=== PATIENT | male | born 1950 | race Caucasian/White ===

== ENCOUNTER → 2020-03-10 12:51 | Outpatient (BNVA) | payer MEDICARE, MEDICAID, SELFPAY | PROVIDERS: Family Provider Family Medicine; PCP Family Medicine; Referring Provider Family Medicine; Visit Provider Anesthesiology Pain Medicine | DX: M47.816 Spondylosis without myelopathy or radiculopathy, lumbar region (principal); M54.16 Radiculopathy, lumbar region; M54.9 Dorsalgia, unspecified; F17.210 Nicotine dependence, cigarettes, uncomplicated; Z79.891 Long term (current) use of opiate analgesic | CPT/HCPCS: 99203; 99204 ==

== ENCOUNTER 2021-06-27 15:25 | Outpatient (CLI) | payer MEDICARE, MEDICAID, SELFPAY ==
--- NOTE | 2021-06-27 15:45 | USCV_ITS ---
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 Limited images during SAVAGE on the left side of 0.94 TBI also no point 4 4 on the right and 0.6 on the left CONCLUSIONS Normal resting SAVAGE with abnormal resting TBI on the right side, suggestive of mild to moderate peripheral artery disease involving the distal vessel. Diminished resting SAVAGE and TBI on the left side suggesting mild peripheral artery disease . No similar previous studies are available for comparison. Dr Merle Kaur MD [facility] (Electronically Signed) Final Date: 28 June 2021 08:00 S
== END 2021-06-27 15:26 | disposition home or self-care (01) ==
LOC: RAD 15:27
PROVIDERS: Family Provider Family Medicine; PCP Family Medicine; Visit Provider Family Medicine
DX: M79.604 Pain in right leg (principal); E11.9 Type 2 diabetes mellitus without complications
CPT/HCPCS: 93922

== ENCOUNTER → 2021-09-12 13:03 | Outpatient (BNVA) | payer MEDICARE, MEDICAID, SELFPAY | PROVIDERS: Family Provider Family Medicine; PCP Family Medicine; Referring Provider Family Medicine; Visit Provider Specialist | DX: G20 Parkinson's disease (principal); F02.80 Dementia in other diseases classified elsewhere, unspecified severity, without behavioral disturbance, psychotic disturbance, mood disturbance, and anxiety; R44.1 Visual hallucinations | CPT/HCPCS: 99204; 99205 ==

== ENCOUNTER 2021-09-13 12:34 | Outpatient (CLI) | payer MEDICARE, MEDICAID, SELFPAY ==
--- NOTE | 2021-09-13 | CT_ITS ---
WS: [id number] CT ANGIOGRAPHY OF THE ABDOMINAL AORTA WITH RUNOFF TO THE ANKLES HISTORY: PAD on ultrasound. TECHNIQUE: Arterial injection is performed during imaging to evaluate the aorta and runoff vessels to the ankles. MIP and volume rendering imaging has also been performed. All images are reviewed. All C T scans at [facility] use at least one of these dose optimization techniques: automated exposu re control; mA and/or kV adjustment per patient size (includes targeted exams where dose is matched t o clinical indication); or iterative reconstruction. Contrast: Omnipaque 350; 95 mL IV. DLP: 709.52 mGy.cm COMPARISON: No similar studies. Abdominal aorta: Extensive atherosclerotic plaque within the aorta. There are multiple calcifications and mural nodules and mural thickening within the aorta. Just below the level of the renal arteries is a lucency through the lumen of the aorta which could be a short dissection or ulcerated plaque ext ending into the RIGHT lateral aorta. There is in the additional similar area of linear contrast enhan cement on the LEFT more inferiorly. Additional focal outpouching with contrast along the posterior la teral RIGHT distal aorta. There is extensive calcification and intimal thickening. Moderate stenosis distal aorta with a maximum diameter of 8 mm. Atherosclerotic plaque in the SMA and the celiac axis. Renal arteries are patent. RIGHT lower extremity arterial system: Proximal RIGHT common iliac artery stenosis 50%. Calcified zoila que and intimal thickening mild dilatation of the common iliac artery to 1.7 cm. Internal and externa l iliac arteries are small caliber and heavily diseased. Distal RIGHT internal iliac is probably occl uded. There is a severe, high-grade stenosis involving the distal external iliac artery at the common femoral artery. There is extensive multifocal areas of plaque and stenosis throughout the SFA. Popli teal artery is patent. Small vessel runoff to the ankle. The anterior tibial artery may be intermitte ntly occluded. LEFT lower extremity arterial system: Ulcerated plaque versus a short dissection involving the proxim al LEFT common iliac artery. 70% stenosis involving the mid to distal common iliac artery. There is a neurysmal dilatation to 1.5 cm. Distal LEFT internal iliac artery is probably occluded. Calcified zoila que and intimal thickening continues into the distal external iliac artery. There is a high-grade george nosis distally near the origin of the femoral artery. SFA and profunda are intact although small honey blanca and heavily disease. Multifocal areas of stenosis greater than 50% in the SFA. 50% stenosis in Hu nter's canal. Popliteal arteries patent. Small caliber three-vessel runoff to the ankle. Cholelithiasis without acute cholecystitis. No ascites or adenopathy. Urinary bladder is not distende d. [place] [id number] IMPRESSION: 1. There is extensive calcified plaque throughout the abdominal aorta with no aneurysm. High-grade stenosis distal abdominal aorta at the bifurcation. 2. Multifocal areas of ulcerated plaque versus short dissections within the ao rta. 3. Additional ulcerated plaque versus short dissection within the proximal LEF T common iliac artery. 4. Mild aneurysmal dilatation of the common iliac arteries, most significant o n the RIGHT at 1.7 cm. 5. Multilevel areas of moderate to high-grade stenosis superficial femoral art eries. 6. Proximal RIGHT common iliac artery stenosis 50%. 7. High-grade stenosis distal RIGHT external iliac artery. 8. 70% stenosis distal LEFT common iliac artery. 9. High-grade stenosis distal LEFT femoral artery. 10. Three-vessel runoff to the ankle is limited. Small caliber vessels.
[2021-09-13 14:20] LABS: Blood Urea Nitrogen 14 mg/dL (8-23)
[2021-09-13] MEDS: iohexol 350 mg/mL 100 mL Btl IV (14:38)
== END 2021-09-13 12:35 | disposition home or self-care (01) ==
LOC: RAD 12:37
PROVIDERS: PCP Family Medicine; Visit Provider Internal Medicine
DX: I73.9 Peripheral vascular disease, unspecified (principal); I70.0 Atherosclerosis of aorta; I35.0 Nonrheumatic aortic (valve) stenosis; I70.8 Atherosclerosis of other arteries
CPT/HCPCS: 73706; 82565; 84520

== ENCOUNTER → 2022-01-10 12:51 | Outpatient (BNVA) | payer MEDICARE, MEDICAID, SELFPAY | PROVIDERS: PCP Family Medicine; Visit Provider Specialist | DX: G20 Parkinson's disease (principal) | CPT/HCPCS: 99214 ==

== ENCOUNTER → 2022-05-03 14:57 | Outpatient (BNVA) | payer MEDICARE, MEDICAID, SELFPAY | PROVIDERS: PCP Family Medicine; Visit Provider Specialist | DX: G20 Parkinson's disease (principal); E11.40 Type 2 diabetes mellitus with diabetic neuropathy, unspecified; Z79.4 Long term (current) use of insulin | CPT/HCPCS: 96116; 99214 ==

== ENCOUNTER 2022-05-04 08:00 | Outpatient (CLI) | payer MEDICARE, MEDICAID, SELFPAY ==
--- NOTE | 2022-05-04 08:12 | CT_ITS ---
WS: [id number] CT ABDOMEN CONTRAST TECHNIQUE: Contrast enhanced CT of the abdomen with coronal and sagittal reformatted images. CLINICAL INFORMATION: OTHER CHOLEITHIASIS W/O OBSTRUCTION COMPARISON: None. DLP: 683.[address] scans at [facility] use at least one of these dose optimization techniques: automated e xposure control; mA and/or kV adjustment per patient size (includes targeted exams where dose is matc hed to clinical indication); or iterative reconstruction. FINDINGS: Hepatomegaly with diffuse fatty infiltration liver. Normal portal vein and splenic vein. Cholelithias is. Lobulated gallbladder fundus likely phrygian cap. Normal spleen. Normal GE junction. Normal GE junction. Stomach and duodenum are normal. Lung bases are well aerated. Fatty atrophy of th e pancreas. Normal pancreatic parenchymal enhancement. Adrenal glands are normal. Normal renal parenc hymal enhancement. No hydronephrosis. Prominent RIGHT extra renal pelvis. Bilateral renal cysts. Norm al caliber abdominal aorta. Moderate aortic calcification. Celiac and SMA are patent with mild calcif ication at the origins worse at the SMA. Small amount of peripheral mural thrombus in the mid and dis lexi abdominal aorta with irregular ulceration. No significant aneurysm. CT/CT abdomen w con* [id number] IMPRESSION: 1. Diffuse fatty infiltration of the liver. 2. Cholelithiasis. No significant gallbladder wall thickening or pericholecyst ic fluid. Lobulated gallbladder fundus likely due to phrygian cap. Gallbladder can be further evaluated with ultrasound. 3. Moderate calcified atheromatous disease abdominal aorta with peripheral mur al thrombus. Irregular atheromatous disease in the mid and distal abdominal aor ta. No aneurysm. 4. Bilateral renal cysts. No hydronephrosis. 5. No other remarkable findings.
[2022-05-04] MEDS: iohexol 350 mg/mL 100 mL Btl IV (09:12)
[2022-05-04 09:19] LABS: Blood Urea Nitrogen 14 mg/dL (8-23)
== END 2022-05-04 08:01 | disposition home or self-care (01) ==
LOC: RAD 08:01
PROVIDERS: Radiology Neuroradiology; PCP Family Medicine; Visit Provider Family Medicine
DX: K80.20 Calculus of gallbladder without cholecystitis without obstruction (principal); K76.0 Fatty (change of) liver, not elsewhere classified; I70.0 Atherosclerosis of aorta; Q61.02 Congenital multiple renal cysts
CPT/HCPCS: 74160; 82565; 84520

== ENCOUNTER 2022-05-15 06:00 | Outpatient (RCR) | payer MEDICARE, MEDICAID, SELFPAY | END 2022-06-12 23:59 | disposition home or self-care (01) | LOC: MPT 06:00 | PROVIDERS: PCP Family Medicine; Visit Provider Specialist | DX: G20 Parkinson's disease (principal) | CPT/HCPCS: 97110; 97161 ==

== ENCOUNTER → 2022-05-23 09:15 | Outpatient (BNVA) | payer MEDICARE, MEDICAID, SELFPAY | PROVIDERS: PCP Family Medicine; Visit Provider Surgery | DX: K80.20 Calculus of gallbladder without cholecystitis without obstruction (principal); K59.00 Constipation, unspecified | CPT/HCPCS: 99203 ==

== ENCOUNTER → 2024-01-02 13:18 | Outpatient (BNVA) | payer MEDICARE, MEDICAID, SELFPAY | PROVIDERS: PCP Family Medicine; Visit Provider Thoracic Surgery (Cardiothoracic Vascular Surgery) | DX: L89.311 Pressure ulcer of right buttock, stage 1 (principal); L89.321 Pressure ulcer of left buttock, stage 1 | CPT/HCPCS: 99213 ==

== ENCOUNTER 2024-01-11 18:54 | Emergency (ER) | payer MEDICARE, MEDICAID, SELFPAY ==
[2024-01-11 18:57] VITALS: BP 149/90; PULSE 79; RESP 18; TEMP 36.9; O2SAT 95; BMI 34.2
--- NOTE | 2024-01-11 19:05 | W.ED.GENADLT ---
HPI - General Adult General: Chief complaint: Altered Mental Status Stated complaint: AMS Time Seen by Provider: 01/11/24 18:58 History of Present Illness: 73-year-old male brought in via EMS. Patient brought in per them because he is been declining mentally last 2 days. Patient has had some urinary symptoms for 4 days. Saw his primary care provider earlier today and was diagnosed with a UTI and prescribed Macrobid. He has not started the Macrobid yet. He is not have any complaints. 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 Diabetes Hx of heart disorder Dementia Pain management contract signed Surgical History History of colonoscopy History of prostate surgery History of coronary artery stent placement History of back surgery Social History Smoking and tobacco/nicotine status: current every day tobacco/nicotine user cigarettes Physical Exam Const: GENERAL APPEARANCE: cooperative; not in distress Resp: COMMON NORMALS: normal respiratory effort and No use of accessory muscles Cardio: COMMON NORMALS: regular rate and regular rhythm RATE: regular rate RHYTHM: regular rhythm GI: COMMON NORMALS: Soft to palpation and non-tender PALPATION: Yes Soft to palpation Psych: COMMON NORMALS: mental status grossly normal and cooperative APPEARANCE: Yes grossly normal Course Vital Signs: Vital signs: Vital Signs Temperature 98.5 F 01/11/24 18:57 Pulse Rate 67 01/11/24 20:08 Respiratory Rate 16 01/11/24 20:08 Blood Pressure 146/79 01/11/24 20:08 Pulse Oximetry 95 01/11/24 20:08 Oxygen Delivery Me thod Room Air 01/11/24 20:08 MDM - General Adult Medical Decision Making Patient diagnostic studies ordered reviewed and interpreted by me. Patient urine is consistent with a UTI however this was similar to what it was reported. Patient otherwise has no acute concerning findings. Patient was able to ambulate without difficulty with us while in the ER. I did provide him with a gram of Rocephin. Recommended to family that they start antibiotics that he has prescribed first thing in the morning. Patient was stable and discharged home. He should follow-up with a primary care provider in a few days. He is at increased risk for morbidity or mortality based on the social determinants of health. Lab Data 01/11/24 19:19 01/11/24 19:19 Laboratory Results WBC 10.70 10^3/uL (3.29-11.43) 01/11/24 19:19 RBC 3.96 10^6/uL (3.85-5.65) 01/11/24 19:19 Hgb 11.30 g/dL (11.27-16.99) 01/11/24 19:19 Hct 35.3 % (37-53) L 01/11/24 19:19 MCV 89.1 fl (82-101) 01/11/24 19:19 MCH 28.5 pg (27-33) 01/11/24 19:19 MCHC 32.0 g/dL (30-55) 01/11/24 19:19 RDW 12.5 % (12.1-15.1) 01/11/24 19:19 Plt Count 243 10^3/cmm (157-399) 01/11/24 19:19 MPV 9.3 fL (7.4-10.4) 01/11/24 19:19 Neut % (Auto) 77.4 % 01/11/24 19:19 Lymph % (Auto) 8.9 % 01/11/24 19:19 Emmet % (Auto) 12.3 % 01/11/24 19:19 Eos % (Auto) 0.5 % 01/11/24 19:19 Baso % (Auto) 0.3 % 01/11/24 19:19 Neut # (Auto) 8.29 10^3/uL (1.8-7.7) H 01/11/24 19:19 Lymph # (Auto) 1.0 10^3/uL (0.8-4.8) 01/11/24 19:19 Emmet # (Auto) 1.3 10^3/uL (0.2-0.9) H 01/11/24 19:19 Eos # (Auto) 0.1 10^3/uL (0.0-0.8) 01/11/24 19:19 Baso # (Auto) 0.0 10^3/uL (0.0-0.1) 01/11/24 19:19 Nucleated RBC % (auto) 0 % 01/11/24 19:19 Nucleated RBCs # 0.0 /100WBC 01/11/24 19:19 Sodium 133 mmol/L (136-145) L 01/11/24 19:19 Potassium 3.5 mmol/L (3.5-5.1) 01/11/24 19:19 Chloride 101 mmol/L (98-107) 01/11/24 19:19 Carbon Dioxide 22 mmol/L (22-29) 01/11/24 19:19 Anion Gap 13.5 (5-19) 01/11/24 19:19 BUN 17 mg/dL (8-23) 01/11/24 19:19 Creatinine 0.6 mg/dL (0.7-1.2) L 01/11/24 19:19 GFR Calculation Not Reportable 01/11/24 19:19 Glucose 174 mg/dL (65-115) H 01/11/24 19:19 Calculated Osmolality 282 mOsm/kg (285-295) L 01/11/24 19:19 Lactic Acid 1.2 mmol/L (0.5-2.2) 01/11/24 19:19 Calcium 8.0 mg/dL (8.5-10.5) L 01/11/24 19:19 Urine Color Yellow (Yellow) 01/11/24 19:02 Urine Appearance Slightly cloudy (CLEAR) 01/11/24 19:02 Urine pH 7 (5-7) 01/11/24 19:02 Ur Specific [place] 1.015 (1.005-1.030) 01/11/24 19:02 Urine Protein Neg (Negative) 01/11/24 19:02 Urine Glucose (UA) 1+ (Normal) H 01/11/24 19:02 Urine Ketones Negative (Negative) 01/11/24 19:02 Urine Blood Neg (Negative) 01/11/24 19:02 Urine Nitrate Negative (Negative) 01/11/24 19:02 Urine Bilirubin Neg (Negative) 01/11/24 19:02 Urine Urobilinogen Neg mg/dL (Negative) 01/11/24 19:02 Ur Leukocyte Esterase Negative (Negative) 01/11/24 19:02 Urine RBC 5-10 /hpf (0-2) H 01/11/24 19:02 Urine WBC 25-40 /hpf (0-5) H 01/11/24 19:02 Ur Squamous Epith Cells 0-4 /hpf (0-5) H 01/11/24 19:02 Amorphous Sediment Not Reportable 01/11/24 19:02 Urine Bacteria 1+ /hpf (NONE) H 01/11/24 19:02 Urine Mucus 2+ /hpf 01/11/24 19:02 All radiology interpretation(s) finalized by discharge Discharge Plan Discharge Patient Disposition: Home Clinical Impression: Acute cystitis with hematuria Condition: Stable Prescriptions: No Action insulin glargine 100 unit/mL (3 mL) insulin pen 10 unit SUBCUT DAILY atorvastatin 40 mg tablet 40 mg PO DAILY acetaminophen [Tylenol Extra Strength] 500 mg tablet 500 mg PO Q6H PRN metoprolol tartrate 25 mg tablet 12.5 mg PO BID aspirin [Adult Low Dose Aspirin] 81 mg tablet,delayed release (DR/EC) 81 mg PO DAILY tramadol 50 mg tablet 50 mg PO BID PRN (Reason: pain) Qty: 45 0RF magnesium hydroxide [Milk of Magnesia] 400 mg/5 mL suspension 5 ml PO DAILY PRN isosorbide mononitrate 30 mg tablet extended release 24 hr 30 mg PO DAILY potassium chloride [Klor-Con 10] 10 mEq tablet extended release 10 meq PO DAILY Basaglar KwikPen U-100 Insulin 100 unit/mL (3 mL) insulin pen 5 unit SUBCUT DAILY gabapentin 300 mg capsule 300 mg PO TID 90 Days Qty: 270 3RF carbidopa-levodopa 25-100 mg tablet See Rx Instructions .ROUTE .COMPLEX Qty: 180 5RF Rx Instructions: Take 2 in the morning, 2 at noon, and 1 in the afternoon. Discharge Orders: Discharge ED (Routine); Ordered 01/11/24 Ordered By: Alfredo Lion Referrals: Ruben Hudson, [Referring] - Discharge Diet: Usual diet Discharge Activity: Resume usual activity Patient Instructions: Urinary Tract Infection in Men (ED), Altered Mental Status (ED), Opioid Safety, Pain Management Activity Restrictions/Additional Instructions: Please be sure you start your already prescribed medications in the morning. Follow with your primary care provider in a couple days for recheck of your symptoms. Be sure you are drinking plenty of fluids. Coding Level of Care Code ED Concrete Products Machine Operator for Ulises Greene
[2024-01-11 19:37] LABS: Basophils % 0.3 %; Eosinophils # 0.1 10^3/uL (0.0-0.8); Eosinophils % 0.5 %; Hematocrit 35.3 % (37-53); Lymphocytes % 8.9 %; Mean Corpuscular Hemoglobin 28.5 pg (27-33); Mean Corpuscular Volume 89.1 fl (82-101); Mean Platelet Volume 9.3 fL (7.4-10.4); Monocytes # 1.3 10^3/uL (0.2-0.9); Monocytes % 12.3 %; Neutrophils # 8.29 10^3/uL (1.8-7.7); Neutrophils % 77.4 %; Nucleated Red Blood Cells % 0 %; Platelet Count 243 10^3/cmm (157-399); Red Blood Count 3.96 10^6/uL (3.85-5.65); Red Cell Distribution Width 12.5 % (12.1-15.1)
[2024-01-11 19:46] LABS: Add Urine Microscopic? YES; Bilirubin Urine Neg (Negative); Blood Urine Neg (Negative); Glucose Urine UA 1+ (Normal); Ketones Urine Negative (Negative); Leukocyte Esterase Urine Negative (Negative); Nitrate Urine Negative (Negative); Protein Urine Neg (Negative); Specific Gravity, Urine 1.015 (1.005-1.030); Urine Appearance Slightly Cloudy (CLEAR); Urine Color Yellow (Yellow); Urobilinogen Urine Neg (Negative); pH Urine 7 (5-7)
[2024-01-11 19:47] LABS: Add Urine Culture? Yes; Bacteria Urine 1+ /hpf; Mucus Urine 2+ /hpf; Squamous Epithelial Cell Urine 0-4 /hpf (0-5); WBC Urine 25-40 /hpf (0-5)
[2024-01-11 19:49] LABS: Anion Gap 13.5 (5-19); Blood Urea Nitrogen 17 mg/dL (8-23); Carbon Dioxide 22 mmol/L (22-29); Chloride 101 mmol/L (98-107); Creatinine Clr Calc Pharmacy 93.8016; Glucose 174 mg/dL (65-115); Lactic Sepsis W/Reflex 1.2 mmol/L (0.5-2.2); Osmolality Calculated 282 mOsm/kg (285-295); Potassium 3.5 mmol/L (3.5-5.1); Sodium 133 mmol/L (136-145)
[2024-01-11] MEDS: cefTRIAXone 1,000 MG in sodium chloride 0.9% (plus) 50 ML 100 MG IV (20:06)
[2024-01-11 20:08] VITALS: BP 146/79; PULSE 67; RESP 16; O2SAT 95
--- NOTE | 2024-01-11 20:39 | PC.NURSE ---
pt able to ambulate with walker as he does at home.
[2024-01-11 21:19] VITALS: BP 146/79; PULSE 67; RESP 16; TEMP 36.9; O2SAT 95
== END 2024-01-11 21:22 | disposition home or self-care (01) ==
PROVIDERS: Emergency Provider Student in an Organized Health Care Education/Training Program
DX: N30.01 Acute cystitis with hematuria (principal); Z79.82 Long term (current) use of aspirin; Z79.4 Long term (current) use of insulin; E11.9 Type 2 diabetes mellitus without complications; F03.90 Unspecified dementia, unspecified severity, without behavioral disturbance, psychotic disturbance, mood disturbance, and anxiety; F17.210 Nicotine dependence, cigarettes, uncomplicated
CPT/HCPCS: 36415; 80048; 81001; 83605; 85025; 87086; 96365; 99284; J0696

== ENCOUNTER 2024-11-06 13:42 | Outpatient (CLI) | payer MEDICARE, MEDICAID, SELFPAY ==
[2024-11-06 14:17] LABS: Bacteria Urine Trace /hpf; Hyaline Casts Urine 11.16 /lpf
[2024-11-06 14:34] LABS: Add Urine Microscopic? YES; Bilirubin Urine Negative (Negative); Blood Urine 2+ (Negative); Glucose Urine UA Negative (Normal); Ketones Urine Trace (Negative); Leukocyte Esterase Urine 1+ (Negative); Nitrate Urine Negative (Negative); Protein Urine 2+ (Negative); Specific Gravity, Urine 1.022 (1.005-1.030); Urine Appearance Clear (CLEAR); Urine Color Dark Yellow (Yellow)
[2024-11-06 14:50] LABS: RBC Urine 50-80 /hpf (0-2); UA Slide Review UA Slide Review Perf
[2024-11-06 14:51] LABS: Add Urine Culture? Yes
== END 2024-11-06 13:43 | disposition home or self-care (01) ==
DX: E11.649 Type 2 diabetes mellitus with hypoglycemia without coma (principal)
CPT/HCPCS: 81001; 87086

== ENCOUNTER 2025-07-22 15:46 | Emergency (ER) | payer MEDICARE, MEDICAID, SELFPAY ==
--- NOTE | 2025-07-22 15:49 | ECG_ITS ---
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 Measurements Intervals [place] Rate: 64 P: 86 CA: 193 QRS: -20 QRSD: 82 T: 55 QT: 411 QTc: 425 Interpretive Statements SINUS RHYTHM No previous ECG available for comparison Electronically Signed On 07-23-2025 17:27:43 PUBLIC RELATIONS SENIOR ASSOCIATE by Merle Kaur M.D. [id number]
--- NOTE | 2025-07-22 15:49 | XR_ITS ---
WS: [id number] XR chest 1V portable [id number] REASON FOR EXAM: ams FINDINGS: No previous examination for comparison. Patient is severely rotated to the right. Mild tortuosity and ectasia of the thoracic aorta. Cardiomegaly. Hyperexpansion of the left lung with herniation of the left lung across the midline. Decreased volume of the right hemithorax/right lung with coarse interstitial reticular lung opacities along the periphery of the right upper lung field. Presumed chronic. No definite acute pulmonary parenchymal or pleural findings. Moderate thoracic levoscoliosis and degenerative spondylosis. XR/XR chest 1V portable [id number] IMPRESSION: Presumed chronically abnormal chest as above. No acute findings are identified.
--- NOTE | 2025-07-22 15:49 | CTR_ITS ---
PROCEDURE INFORMATION: Exam: CT Head Without Contrast Exam date and time: 07/22/2025 4:10 PM Age: 74 years old Clinical indication: Altered mental status/memory loss; Additional info: AMS TECHNIQUE: Imaging protocol: Computed tomography of the head without contrast. Radiation optimization: All CT scans at this facility use at least one of these dose optimization techniques: automated exposure control; mA and/or kV adjustment per patient size (includes targeted exams where dose is matched to clinical indication); or iterative reconstruction. COMPARISON: No relevant prior studies available. RADIATION DOSE METRICS: Total DLP (mGy-cm): 1115.59 FINDINGS: Brain: The patient is asymmetrically positioned within the gantry challenging resolution. Moderate patchy periventricular and deep white matter decreased density noted in both cerebral hemispheres but appears to be greater on the left than the right.. The midline is intact. Two subcentimeter areas of extra-axial calcific like density is seen along the inner table image 33 of series 7. Beam hardening artifact obscures resolution through the posterior fossa structures.. No hemorrhage. Trace atherosclerotic calcification is seen in the left supraclinoid ICA. No mass effect. Cerebral ventricles: Ventricles demonstrate normal size shape and configuration and are felt to be in proportion to the degree of widening of the sulci, sylvian fissures and basilar cisterns. Paranasal sinuses: Visualized sinuses are unremarkable. No fluid levels. Mastoid air cells: Visualized mastoid air cells are well aerated. Bones: Calvarial vault appears to be intact.. No acute fracture. Soft tissues: Left temporal dystrophic scalp calcifications are noted to be present. These are best seen on image [address]/CT head wo con* [id number] IMPRESSION: 1. No acute intracranial head CT findings identified. 2. Atrophy/involutional changes of aging with components of [id number]-right chronic small-vessel disease. 3. Question history of remote trauma as evidenced by left frontotemporal scalp fibrotic changes and dystrophic left temporal scalp calcifications in addition to extra-axial calcifications seen along the left frontal region of the inner table warranting further clinical correlation.
--- NOTE | 2025-07-22 15:55 | W.ED.GENADLT ---
HPI - General Adult General: Chief complaint: Altered Mental Status Stated complaint: AMS Time Seen by Provider: 07/22/25 15:47 Source: EMS Mode of arrival: EMS Limitations: altered mental status History of Present Illness: 74-year-old male has a history of Parkinson's also history of dementia here with EMS for increased confusion at home. Primus patient's family states that he has just been more confused and normal here he is able to tell me his name he does follow commands is disoriented to time and place. He denies any pain anywhere denies any known recent illness he has been afebrile Related Data Home Medications ?Medication ?Instructions ?Recorded ?Confirmed acetaminophen 500 mg tablet 500 mg PO Q6H PRN 03/10/20 05/23/22 (Tylenol Extra Strength) aspirin 81 mg tablet,delayed 81 mg PO DAILY 03/10/20 05/23/22 release (Adult Low Dose Aspirin) atorvastatin 40 mg tablet 40 mg PO DAILY 03/10/20 05/23/22 insulin glargine 100 unit/mL (3 10 unit SUBCUT DAILY 03/10/20 05/23/22 mL) subcutaneous pen metoprolol tartrate 25 mg tablet 12.5 mg PO BID 03/10/20 05/23/22 insulin glargine 100 unit/mL (3 5 unit SUBCUT DAILY 07/19/21 05/23/22 mL) subcutaneous pen (Basaglar KwikPen U-100 Insulin) isosorbide mononitrate 30 mg 30 mg PO DAILY 07/19/21 05/23/22 tablet,extended release 24 hr magnesium hydroxide 400 mg/5 mL 5 ml PO DAILY PRN 07/19/21 05/23/22 oral suspension (Milk of Magnesia) potassium chloride 10 mEq 10 meq PO DAILY 07/19/21 05/23/22 tablet,extended release (Klor-Con) Previous Rx's ?Medication ?Instructions ?Recorded tramadol 50 mg tablet 50 mg PO BID PRN pain #45 tabs 03/10/20 gabapentin 300 mg capsule 300 mg PO TID 90 days #270 caps 08/08/22 carbidopa 25 mg-levodopa 100 mg See Rx Instructions .Route 12/22/22 tablet .COMPLEX #180 tabs cephalexin 500 mg capsule 500 mg PO TID 7 days #21 caps 07/22/25 Allergies Allergy/AdvReac Type Severity Reaction Status Date / Time No Known Allergies Allergy Verified 05/23/22 09:20 Review of Systems General: Reports: ROS unobtainable due to mental status PFSH ED PFSH: Medical History (Updated 07/22/25 @ 17:59 by Tito Singh MD) Asymptomatic cholelithiasis meterman (current) use of opiate analgesic Diabetes Hx of heart disorder Dementia Pain management contract signed Surgical History History of colonoscopy History of prostate surgery History of coronary artery stent placement History of back surgery Social History Smoking and tobacco/nicotine status: current every day tobacco/nicotine user cigarettes Physical Exam Const: COMMON NORMALS: negative for patient oriented x3 HENMT: COMMON NORMALS: normocephalic and atraumatic HEAD & SCALP: normocephalic and atraumatic Eye: COMMON NORMALS: Equal, round and reactive pupils present PUPIL: Yes Equal, round and reactive pupils present Neck/C-Spine: COMMON NORMALS: full ROM and supple Chest: COMMONS NORMALS: normal inspection of the chest and normal palpation of entire chest wall Resp: COMMON NORMALS: normal respiratory effort, No retractions, No use of accessory muscles and clear to auscultation bilaterally AUSCULTATION: clear to auscultation bilaterally Cardio: COMMON NORMALS: regular rate, regular rhythm and No murmurs present (Cardio) RATE: regular rate RHYTHM: regular rhythm GI: COMMON NORMALS: Normal to inspection, nondistended, normoactive bowel sounds present, Soft to palpation, non-tender and no masses PALPATION: Yes Soft to palpation Extremity: COMMON NORMALS: normal to inspection and full ROM Neuro: COMMON NORMALS: moves all extremities and no focal motor deficits; negative for patient oriented x3 Psych: COMMON NORMALS: Normal thought process present and cooperative THOUGHT PROCESS: Normal thought process present Skin: COMMON NORMALS: no rashes or lesions noted and no wounds GENERAL SKIN EXAM: no rashes or lesions noted Course Vital Signs: Vital signs: Vital Signs Pulse Rate 69 07/22/25 18:29 Respiratory Rate 16 07/22/25 16:00 Blood Pressure 172/72 07/22/25 18:29 Pulse Oximetry 96 07/22/25 18:29 Oxygen Delivery Me thod Room Air 07/22/25 18:22 MDM - General Adult Medical Decision Making 74-year-old male history of dementia and Parkinson's presented here with some increased confusion differential includes intracranial hemorrhage, stroke, infection. Patient here appears mainly at his baseline able answer some questions CT head showed no significant findings no signs of stroke he has no focal deficits here chest x-ray was interpreted by me showed no acute findings no signs of pneumonia lab work showed no significant abnormality does have a cystitis could be contributing to his slight increased of altered mental status he has no signs of sepsis I feel he is stable for outpatient treatment at this time did give him a dose of IV Rocephin here will prescribe him Keflex for home. Patient is to follow-up with his PCP and return if worsening I did go over all this with family they understand agree to plan. EKG interpreted by me at 1557 normal sinus rhythm heart rate [address] elevation QRS 82 QTc 420 Medical Records I reviewed the patient's medical records. Lab Data I reviewed the patient's lab results. 07/22/25 16:09 07/22/25 16:09 Radiology Impressions Chest X-Ray 07/22/25 15:49 IMPRESSION: Presumed chronically abnormal chest as above. No acute findings are identified. Head CT 07/22/25 15:49 IMPRESSION: 1. No acute intracranial head CT findings identified. 2. Atrophy/involutional changes of aging with components of rzem-bmryzgk-wugm-right chronic small-vessel disease. 3. Question history of remote trauma as evidenced by left frontotemporal scalp fibrotic changes and dystrophic left temporal scalp calcifications in addition to extra-axial calcifications seen along the left frontal region of the inner table warranting further clinical correlation. Laboratory Results WBC 7.46 10^3/uL (3.29-11.43) 07/22/25 16:09 RBC 4.96 10^6/uL (3.85-5.65) 07/22/25 16:09 Hgb 13.80 g/dL (11.27-16.99) 07/22/25 16:09 Hct 43.2 % (37-53) 07/22/25 16:09 MCV 87.1 fl (82-101) 07/22/25 16:09 MCH 27.8 pg (27-33) 07/22/25 16: MCHC 31.9 g/dL (30-55) 07/22/25 16:09 RDW 13.7 % (12.1-15.1) 07/22/25 16:09 Plt Count 245 10^3/cmm (157-399) 07/22/25 16:09 MPV 9.5 fL (7.4-10.4) 07/22/25 16:09 Neut % (Auto) 61.9 % 07/22/25 16:09 Lymph % (Auto) 25.1 % 07/22/25 16:09 Cass % (Auto) 9.4 % 07/22/25 16:09 Eos % (Auto) 2.8 % 07/22/25 16:09 Baso % (Auto) 0.4 % 07/22/25 16:09 Neut # (Auto) 4.62 10^3/uL (1.8-7.7) 07/22/25 16:09 Lymph # (Auto) 1.9 10^3/uL (0.8-4.8) 07/22/25 16:09 Cass # (Auto) 0.7 10^3/uL (0.2-0.9) 07/22/25 16:09 Eos # (Auto) 0.2 10^3/uL (0.0-0.8) 07/22/25 16:09 Baso # (Auto) 0.0 10^3/uL (0.0-0.1) 07/22/25 16:09 Nucleated RBC % (auto) 0 % 07/22/25 16:09 Nucleated RBCs # 0.0 /100WBC 07/22/25 16:09 Sodium 143 mmol/L (136-145) 07/22/25 16:09 Potassium 4.1 mmol/L (3.5-5.1) 07/22/25 16:09 Chloride 105 mmol/L (98-107) 07/22/25 16:09 Carbon Dioxide 26 mmol/L (22-29) 07/22/25 16:09 Anion Gap 16.1 (5-19) 07/22/25 16:09 BUN 13 mg/dL (8-23) 07/22/25 16:09 Creatinine 0.6 mg/dL (0.7-1.2) L 07/22/25 16:09 GFR Calculation Not Reportable 07/22/25 16:09 Glucose 195 mg/dL (65-115) H 07/22/25 16:09 Calculated Osmolality 301 mOsm/kg (285-295) H 07/22/25 16:09 Calcium 9.9 mg/dL (8.5-10.5) 07/22/25 16:09 Total Bilirubin 0.5 mg/dL (0.15-1.2) 07/22/25 16:09 AST 15 U/L (0-40) 07/22/25 16:09 ALT 12 U/L (0-41) 07/22/25 16:09 Alkaline Phosphatase 70 U/L (40-130) 07/22/25 16:09 Total Protein 7.4 g/dL (6.6-8.7) 07/22/25 16:09 Albumin 4.3 g/dL (3.5-5.2) 07/22/25 16:09 Globulin 3.1 g/dL (1.3-4.6) 07/22/25 16:09 Urine Color Yellow (Yellow) 07/22/25 17:24 Urine Appearance Cloudy (CLEAR) A 07/22/25 17:24 Urine pH 7.0 (5-7) 07/22/25 17:24 Ur Specific [place] 1.019 (1.005-1.030) 07/22/25 17:24 Urine Protein 1+ (Negative) A 07/22/25 17:24 Urine Glucose (UA) Negative (Normal) 07/22/25 17:24 Urine Ketones Negative (Negative) 07/22/25 17:24 Urine Blood 1+ (Negative) A 07/22/25 17:24 Urine Nitrate Negative (Negative) 07/22/25 17:24 Urine Bilirubin Negative (Negative) 07/22/25 17:24 Urine Urobilinogen 0.2 mg/dL (Negative) 07/22/25 17:24 Ur Leukocyte Esterase 2+ (Negative) A 07/22/25 17:24 Urine RBC 6-10 /hpf (0-2) 07/22/25 17:24 Urine WBC >100 /hpf (0-5) H 07/22/25 17:24 Ur Squamous Epith Cells 0-5 /hpf (0-5) 07/22/25 17:24 Amorphous Sediment Not Reportable 07/22/25 17:24 Urine Bacteria 4+ /hpf (NONE) H 07/22/25 17:24 Hyaline Casts 0.40 /lpf 07/22/25 17:24 All radiology interpretation(s) finalized by discharge Discharge Plan Discharge Patient Disposition: Home Clinical Impression: Acute cystitis Condition: Stable Prescriptions: New cephalexin 500 mg capsule 500 mg PO TID 7 Days Qty: 21 0RF No Action insulin glargine 100 unit/mL (3 mL) insulin pen 10 unit SUBCUT DAILY atorvastatin 40 mg tablet 40 mg PO DAILY acetaminophen [Tylenol Extra Strength] 500 mg tablet 500 mg PO Q6H PRN metoprolol tartrate 25 mg tablet 12.5 mg PO BID aspirin [Adult Low Dose Aspirin] 81 mg tablet,delayed release (DR/EC) 81 mg PO DAILY tramadol 50 mg tablet 50 mg PO BID PRN (Reason: pain) Qty: 45 0RF magnesium hydroxide [Milk of Magnesia] 400 mg/5 mL suspension 5 ml PO DAILY PRN isosorbide mononitrate 30 mg tablet extended release 24 hr 30 mg PO DAILY potassium chloride [Klor-Con 10] 10 mEq tablet extended release 10 meq PO DAILY Basaglar KwikPen U-100 Insulin 100 unit/mL (3 mL) insulin pen 5 unit SUBCUT DAILY gabapentin 300 mg capsule 300 mg PO TID 90 Days Qty: 270 3RF carbidopa-levodopa 25-100 mg tablet See Rx Instructions .ROUTE .COMPLEX Qty: 180 5RF Rx Instructions: Take 2 in the morning, 2 at noon, and 1 in the afternoon. Discharge Orders: Discharge ED (Routine); Ordered 07/22/25 Ordered By: Tito Singh Referrals: GodfreyNovember, HAND RUG CLEANER [Primary Care Provider, Nurse Practitioner] - 4-7 days Discharge Diet: Advance as tolerated Discharge Activity: Resume usual activity Patient Instructions: Urinary Tract Infection in Men (ED) Print Language: Hungarian Coding Level of Care Code ED Sample Tester for Ulises Greene
[2025-07-22 16:00] VITALS: BP 197/89; PULSE 66; RESP 16; O2SAT 96
[2025-07-22 16:22] LABS: Hematocrit 43.2 % (37-53); Hemoglobin 13.80 g/dL (11.27-16.99); Mean Corpuscular HGB Conc 31.9 g/dL (30-55); Mean Corpuscular Hemoglobin 27.8 pg (27-33); Mean Corpuscular Volume 87.1 fl (82-101); Nucleated Red Blood Cells % 0 %; Platelet Count 245 10^3/cmm (157-399); Red Blood Count 4.96 10^6/uL (3.85-5.65); White Blood Count 7.46 10^3/uL (3.29-11.43)
[2025-07-22 16:46] VITALS: BP 209/90; PULSE 62; O2SAT 97
[2025-07-22 16:50] LABS: Alanine Aminotransferase 12 U/L (0-41); Albumin Level 4.3 g/dL (3.5-5.2); Alkaline Phosphatase 70 U/L (40-130); Anion Gap 16.1 (5-19); Aspartate Amino Transferase 15 U/L (0-40); Blood Urea Nitrogen 13 mg/dL (8-23); Calcium 9.9 mg/dL (8.5-10.5); Carbon Dioxide 26 mmol/L (22-29); Chloride 105 mmol/L (98-107); Globulin 3.1 g/dL (1.3-4.6); Potassium 4.1 mmol/L (3.5-5.1); Sodium 143 mmol/L (136-145); Total Protein 7.4 g/dL (6.6-8.7)
[2025-07-22] MEDS: hyDRALAzine 20 mg/mL INJ 1 mL 10 MG IVP (16:56)
[2025-07-22 17:16] LABS: Glucose 195 mg/dL (65-115); Osmolality Calculated 301 mOsm/kg (285-295)
[2025-07-22 17:34] LABS: Glucose Urine UA Negative (Normal); Nitrate Urine Negative (Negative); Specific Gravity, Urine 1.019 (1.005-1.030)
[2025-07-22 17:39] LABS: Add Urine Microscopic? YES
[2025-07-22] MEDS: cefTRIAXone 1,000 mg SDV 1000 MG IVP (18:16)
[2025-07-22 18:22] VITALS: BP 172/77; PULSE 69; O2SAT 96
--- NOTE | 2025-07-22 18:26 | PC.NURSE ---
daughter reports pt. at baseline besides hallucinations which is common when he has a uti. pt. is incontinent and gets frequent UTI per dauhter.
[2025-07-22 18:29] VITALS: BP 172/72; PULSE 69; O2SAT 96
--- OUTSIDE RECORDS SUMMARY | 2025-07-22 20:34 | XMS_ITS | Encounter Summary ---
Author Organization [facility] Address [address] [place] [address] Care Team Providers Care Physical Sciences Professor Name Role Phone Venita Harris Primary Care Provider [phone] Encounter Details Date Type Department Care Team (Late st Contact Info) Description 07/21/2025 External Device Data [facility] ABSTRACTION Provider, Abstract NO ADDRESS ON FILE Social History Tobacco Use Types Packs/Day Years Used Date Smoking Tobacco: Every Day Cigarettes Passive Smoke Exposure: Current Smokeless Tobacco: Never Alcohol Use Standard Drinks/Week Comments No 0 (1 standard drink = 0.6 oz pur e alcohol) Sex and Gender Information Value Date Recorded Sex Assigned at Not on file Legal Sex Male 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 Gender Identity Not on file Sexual Orientation Not on file documented as of this encounter Plan of Treatment Upcoming Encounters Date Type Department Care Team (Late st Contact Info) Description 2025 3:40 PM BONE PROCESS OPERATOR Office Visit [facility] [place] [address] [place] [phone] November, [facility] [address] [place] [address] 08/20/2025 11:00 AM BONE PROCESS OPERATOR Clinical Support [facility] [address] [place] [address] 02/04/2026 11:30 AM CDT Office Visit [address] [place] [phone] Hiral Scherer, SUPERVISOR [employer]ETS [address] [place] [address] documented as of this encounter Visit Diagnoses Not on filedocumented in this encounter Additional Health Concerns Assessment Noted Time PHQ-9 Depression Total Score: 1 09/23/19 25 3:46 PM BONE PROCESS OPERATOR documented as of this encounter Care Teams Physical Sciences Professor Relationship Specialty Start Date End Date Venita Harris DO [address] [place] [phone] PCP - General Family Practice 01/02/24 documented as of this encounter
--- OUTSIDE RECORDS SUMMARY | 2025-07-22 20:34 | XMS_ITS | Encounter Summary ---
Author Organization [facility] Address [address] [place] [address] Care Team Providers Care Director Of Fundraising Name Role Phone Venita Harris DO Primary Care Provider Encounter Details Date Type Department Care Team (Late Contact Info) Description 07/22/2025 Orders Only [facility] [address] [place] [address] Venita Harris DO [address] [place] [address] Type 2 diabetes mellitus with diabetic polyneuropathy, with long-term current use of insulin ([facility]) Social History Tobacco Use Types Packs/Day Years Used Date Smoking Tobacco: Every Day Cigarettes Passive Smoke Exposure: Current Smokeless Tobacco: Never Alcohol Use Standard Drinks/Week Comments No 0 (1 standard drink = 0.6 oz pur e alcohol) Sex and Gender Information Value Date Recorded Sex Assigned at Not on file Legal Sex Male 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 SCHOOL SCIENCE TUTOR Gender Identity Not on file Sexual Orientation Not on file documented as of this encounter Plan of Treatment Upcoming Encounters Date Type Department Care Team (Late Contact Info) Description 2025 3:40 PM HIGH SCHOOL SCIENCE TUTOR Office Visit [facility] [address] [place] [address] November, ATOMIC PHYSICS PROFESSOR [address] [place] [address] 08/20/2025 11:00 AM HIGH SCHOOL SCIENCE TUTOR Clinical Support [facility] [address] [phone] 02/04/2026 11:30 AM CDT Office Visit [facility] [address] [address] Hiral Scherer, ATOMIC PHYSICS PROFESSOR[address] [phone] Scheduled Orders Name Type Priority Associated Diagnoses Orde r Schedule HEMOGLOBIN A1C Lab Routine Type 2 diabetes mellitus with diabetic polyneuropathy, with long-term current use of insulin (CMS/HCC) Expected: 08/01/2025 (Approximate), Expires: 08/11/2025 documented as of this encounter Visit Diagnoses Diagnosis Type 2 diabetes mellitus with diabetic polyneuropathy, with long-term current use of insulin (CMS/HCC) documented in this encounter Additional Health Concerns Assessment Noted Time PHQ-9 Depression Total Score: 1 09/23/19 25 3:46 PM HIGH SCHOOL SCIENCE TUTOR documented as of this encounter Care Teams Director Of Fundraising Relationship Specialty Start Date End Date Venita Harris DO [address] [place] [address] PCP - General Family Practice 01/02/24 documented as of this encounter
--- OUTSIDE RECORDS SUMMARY | 2025-07-22 20:35 | XMS_ITS | Clinical Summary ---
Author Organization [facility] Address [address] [place] [address] Care Team Providers Care Railroad Inspector Name Role Phone Venita Harris DO Primary Care Provider Allergies No known active allergies Medications nitroglycerin (NITROSTAT) 0.4 mg Tablet, SublingualIndica tions:Atheroscle rosis of [place] coronary artery of [place] heart without angina pectoris Place 1 Tablet (0.4 mg) under tongue every 5 minutes as needed for Chest Pain. 30 Tablet 3 09/09/19 21 Active magnesium hydroxide (MILK OF MAGNESIA) 400 mg/5 mL suspension Take 30 mL by mouth 1 time daily as needed for Constipation. 06/08/20 15 Active atorvastatin (LIPITOR) 40 mg tablet Take 1 Tablet (40 mg) by mouth Daily LATE. 30 Tablet 1 07/13/20 15 Active calcium as carbonate (TUMS ES) 750 mg (300 mg elemental) Tablet, Chewable Take by mouth 3 times daily with meals. 06/08/20 15 Active BD Kirsty 2nd Gen Pen Needle 32 gauge x 5/32 Needle 11/13/19 22 Active furosemide (LASIX) 40 mg tabletIndication s:Swelling Take 1 Tablet (40 mg) by mouth daily. 90 Tablet 3 12/14/19 24 Active potassium chloride (Klor-Con M20) 20 mEq Extended Release tabletIndication s:Swelling of both lower extremities Take 1 tablet by mouth once daily 90 Tablet 4 05/18/20 24 Active nicotine (NICODERM CQ) 21 mg/24 hr patchIndications :Nicotine dependence with current use Apply 1 Patch to skin as directed every 24 hours. 28 Patch 1 09/23/19 25 Active Blood-Glucose Sensor (FreeStyle Gamaliel 3 Sensor) DeviceIndication s:Type 2 diabetes mellitus with diabetic polyneuropathy, with long-term current use of insulin ([facility]) Use to monitor glucose continuously. Apply a sensor every 14 days. 6 Each 3 09/23/19 25 Active Blood-Glucose Meter,Continuous (FreeStyle Gamaliel 3 [place])Indicatio ns:Type 2 diabetes mellitus with diabetic polyneuropathy, with long-term current use of insulin ([facility]) Used to check blood sugars daily 1 Each 09/23/19 25 Active ferrous sulfate 325 mg (65 mg iron) tabletIndication s:Other iron deficiency anemia Take 1 Tablet (325 mg) by mouth daily. 30 Tablet 4 09/25/19 25 Active OTHERIndications :Late onset Alzheimer's dementia with behavioral disturbance ([facility]),Chroni c obstructive pulmonary disease, unspecified COPD type ([facility]),Type 2 diabetes mellitus with diabetic polyneuropathy, with long-term current use of insulin ([facility]) Medical Alert System 1 Each 10/28/19 25 Active Additional Information Patient not taking.Reported on 03/05/2025 hydrocortisone (CORTAID) 1 % Cream Apply to affected area 2 times daily. 1 Gram 02/04/20 25 Active clotrimazole (LOTRIMIN) 1 % Cream Apply to affected area 2 times daily. 1 Gram 02/04/20 25 Active insulin glargine (LANTUS) 100 unit/mL pen syringe Inject 40 Units by subcutaneous injection 2 times daily. 100 mL 3 02/17/20 25 Active carbidopa-levodo pa (PARCOPA) 25-100 mg Tablet, Rapid Dissolve Place 1 Tablet inside cheek 3 times daily. 270 Tablet 3 03/25/20 25 Active ALPRAZolam (XANAX) 0.25 mg tabletIndication s:Generalized anxiety disorder TAKE 1 TABLET BY MOUTH NIGHTLY NEEDED FOR ANXIETY 30 Tablet 04/08/20 25 Active Blood-Glucose MeterIndications :Type 2 diabetes mellitus with diabetic polyneuropathy, with long-term current use of insulin ([facility]) USE TO CHECK BLOOD SUGARS TWICE DAILY 1 Each 06/15/20 25 Active lancetsIndicatio ns:Type 2 diabetes mellitus with diabetic polyneuropathy, with long-term current use of insulin ([facility]) USE TO CHECK BLOOD SUGARS TWICE DAILY 200 Each 3 06/15/20 25 Active blood sugar diagnostic (Blood Glucose Test) StripIndications :Type 2 diabetes mellitus with diabetic polyneuropathy, with long-term current use of insulin ([facility]) USE TO CHECK BLOOD SUGARS TWICE DAILY 200 Each 3 06/15/20 25 Active prucalopride (Motegrity) 1 mg TabletIndication s:Chronic idiopathic constipation Take 1 Tablet (1 mg) by mouth daily. 30 Tablet 2 07/14/20 25 Active tirzepatide (Mounjaro) 2.5 mg/0.5 mL Pen InjectorIndicati ons:Type 2 diabetes mellitus with diabetic polyneuropathy, with long-term current use of insulin ([facility]) Inject 0.5 mL (2.5 mg) by subcutaneous injection every 7 days. 2 mL 3 07/14/20 25 Active semaglutide (Ozempic) 0.25 mg or 0.5 mg (2 mg/3 mL) Pen InjectorIndicati ons:Type 2 diabetes mellitus with diabetic polyneuropathy, with long-term current use of insulin ([facility]) Inject 0.25 mg by subcutaneous injection every 7 days. 9 mL 3 03/16/20 25 025 Discontinu ed(Alterna te therapy prescribed ) Active Problems Problem Noted Date Diagnosed Date Iron deficiency anemia 03/09/2025 Type 2 diabetes mellitus wit h diabetic polyneuropathy, with long-term current use of insulin 11/07/2020 Late onset Alzheimer's dementia with behavioral disturbance 11/07/2020 History of aortic dissection 11/07/2020 Chronic midline low back pain with right-sided s ciatica 09/05/2018 Lumbar disc herniation with radiculopathy 2018 Obesity (BMI 30.0-34.9) 09/04/2018 Mixed hyperlipidemia 09/04/2018 Gross hematuria 06/26/2016 Personal history of prostate cancer 04/24/2016 Cancer Staging:Clinical: Unsigned Pathologic stage from 06/13/2016:Stage III(T3b, N0, cM0, [place] 8-10) - Signed by Ann Israel MD on 06/13/2016 Coronary artery disease invo lving [place] coronary artery of [place] heart without angina pectoris 04/24/2015 Overview (12/09/2020): Cardiac catheterization on 04/23/15. Critical CAD in RCA treated with a drug eluting stent. Mild to moderate coronary artery disease in the LAD and LCx. S/P coronary artery stent placement 04/24/2015 Overview (12/09/2020): HUNG to RCA Gastroesophageal reflux disease without esophagi tis 04/23/2015 Tobacco use disorder 09/18/2011 Chronic obstructive pulmonary disease 09/18/2011 Resolved Problems Problem Noted Date Diagnosed Date Resolved Date Unstable angina 04/24/2015 09/16/2020 Encounters Date Type Department Care Team Description 07/22/2025 Orders Only [facility] [address] [place] [address] Venita Harris, DO Type 2 diabetes mellitus with diabetic polyneuropathy, with long-term current use of insulin ([facility]) 07/21/2025 External Device Data STL ABSTRACTION Provider, Abstract 07/14/2025 Orders Only [facility] [address] [place] [address] Godfrey, November, PUBLIC POLICY ANALYST Type 2 diabetes mellitus with diabetic polyneuropathy, with long-term current use of insulin (Primary Dx); Chronic idiopathic constipation 06/24/2025 Orders Only [facility] [address] [place] [address] Venita Harris, Type 2 diabetes mellitus with diabetic polyneuropathy, with long-term current use of insulin ([facility]) 06/15/2025 Refill [facility] [address] [place] [address] Godfrey, November, PUBLIC POLICY ANALYST Type 2 diabetes mellitus with diabetic polyneuropathy, with long-term current use of insulin ([facility]) 06/14/2025 Refill [facility] [address] [place] [address] November, Type 2 diabetes mellitus with diabetic polyneuropathy, with long-term current use of insulin 05/22/2025 Orders Only [facility] [address] [place] [phone] November, Acute cystitis without hematuria (Primary Dx) from Last 3 Months Family History Medical History Relation Name Comments Heart Attack Brother 1 Heart Attack Brother 2 Heart Attack Brother 3 Healthy Daughter Maida Heart Attack Father Heart Attack Mother Heart Attack Sister Healthy Son Colon Cancer Neg Hx Relation Name Status Comments Brother 1 Brother 2 Brother 3 Daughter Maida Alive Father Mother Sister Son Alive Social History Tobacco Use Types Packs/Day Years Used Date Smoking Tobacco: Every Day Cigarettes Passive Smoke Exposure: Current Smokeless Tobacco: Never Tobacco Cessation:Ready to Q uit: No; Counseling Given: Yes Alcohol Use Standard Drinks/Week Comments No 0 (1 standard drink = 0.6 oz pur e alcohol) Sex and Gender Information Value Date Recorded Sex Assigned at Not on file Legal Sex Male 3:06 PM TYRE FINISHER AND EXAMINER Gender Identity Not on file Sexual Orientation Not on file Last Filed Vital Signs Vital Sign Reading Time Taken Comments Blood Pressure 133/62 03/24/2025 9:01 AM CDT Pulse 67 03/24/2025 9:01 AM CDT Temperature 36.7 C (98.1 F) 03/24/2025 9:01 AM CDT Respiratory Rate 18 03/24/2025 9:01 AM CDT Oxygen Saturation 97% 03/24/2025 9:01 AM CDT Inhaled Oxygen Concentration - - Weight 93.9 kg (207 lb) 03/05/2025 12:44 PM CDT Height 172.7 cm (5' 8 ) 03/05/2025 12:44 PM CDT Body Mass Index 31.47 03/05/2025 12:44 PM CDT Plan of Treatment Upcoming Encounters Date Type Department Care Team (Late st Contact Info) Description 2025 3:40 PM TYRE FINISHER AND EXAMINER Office Visit [facility] [address] [place] [address] November, [address] [place] [phone] 08/20/2025 11:00 AM TYRE FINISHER AND EXAMINER Clinical Support [facility] [address] [phone] 02/04/2026 11:30 AM CDT Office Visit [address] [address] Hiral Scherer, PUBLIC POLICY ANALYST [address] [place] [phone] Health Maintenance Due Date Last Done Comments DTAP/TDAP/TD VACCINES (1 - Tdap) 1968 PNEUMOCOCCAL VACCINE 50+ YEA RS (1 of 2 - PCV) 1968 FIT-DNA Q 3 years 1994 FIT/FOBT Q 1 year 1994 Flex Sig/CT Colonography Q 5 years 1994 ZOSTER VACCINE (1 of 2) 1999 COLORECTAL SCREENING 05/12/2017 05/12/2013 Colorectal Cancer Screening 05/12/2017 DIABETES ANNUAL RETINAL EXAM 09/10/2021 09/10/2020, 09/10/2020 RSV VACCINE (60+ or ) (1 - 1-dose 75+ series) 2024 [facility] uACR (Auto Order) 08/13/2024 10/09/2023 [place] Preventative Visit/Annual Wellness Visit 08/13/2024 04/28/2024 DIABETES MICROALBUMIN ANNUAL SCREEN 10/09/2024 10/09/2023 INFLUENZA VACCINE (#1) 2025 DIABETES ANNUAL FOOT EXAM 04/28/2025 04/28/2024, LDL CHOLESTEROL ANNUAL 04/28/2025 , 10/09/2023, 09/09/2020, Additional history exists DIABETES: A1C (Auto Order) 06/05/202503/05, 09/23/2024, 04/28/2024, Additional history exists DIABETES HBA1C Q 6 MONTHS 09/05/20255, 09/23/2024, 04/28/2024, Additional history exists Abdominal Aortic Aneurysm (A AA) Screening Completed 03/22/2022 KHE eGFR (Auto Order) Completed 03/05/2025 , 09/23/2024, 04/28/2024, Additional history exists Medical Devices Implanted Type Area Commercial Sheet Metal Foreman Device Identifier Shelf Expiration Date Model / Serial / Lot Sealant Duraseal 5ml [id number] Implanted:08/14 by Javed Flood MD (Quantity not on file) Biological N/A: Back [employer] Power Systems[employer] ALEXIS 12/10/2018 / / [id number] Hemostatic Surgicel 1x2in [id number] Implanted:Qty: 1 on 06/12/2016 by Iraj Menezes MD Hemostatic N/A: Abdomen [employer] 01/10/20191960 / / [id number] Hemostatic Surgicel 3x4in 1942 - [id number] Implanted:Qty: 1 on 06/12/2016 by Iraj Menezes MD Hemostatic N/A: Abdomen [employer] 05/12/20201942 / / [id number] Hemostatic Surgifoam 1gm [id number] Implanted:08/14 by Javed Flood MD (Quantity not on file) Hemostatic N/A: Back J&J[employer] 06/10/20201977 / / [id number] Promus Premier 3.5x12 Implanted:04/13 (Quantity not on file) Stent Promus 3.5x16-09/22/19 17 Implanted:09/13 (Quantity not on file) Stent Procedures Procedure Name Priority Date/Time Associated Diagnosis Comments COMPREHENSIVE METABOLIC PANEL Routine 03/05/2025 1:21 PM CDT Type 2 diabetes mellitus with diabetic polyneuropathy, with long-term current use of insulin HEMOGLOBIN A1C Routine 03/05/2025 1:21 PM CDT Type 2 diabetes mellitus with diabetic polyneuropathy, with long-term current use of insulin LIPID PANEL Routine 04/28/2024 10:32 AM CDT Mixed hyperlipidemia MICROALBUMIN/CREATINI NE RATIO, RANDOM UR Routine 10/09/2023 11:44 AM TYRE FINISHER AND EXAMINER Uncontrolled type 2 diabetes mellitus with hyperglycemia, with long-term current use of insulin ([facility]) Dyslipidemia US ABDOMEN COMPLETE Routine 03/22/2022 1 1:05 AM CDT Low back pain, unspecified DIABETES EYE EXAM 09/10/2020 12:00 AM TYRE FINISHER AND EXAMINER from Last 3 Months or Most Recently Relevant to Health Maintenance Results * (ABNORMAL) HEMOGLOBIN A1C (03/05/2025 1:21 PM CDT) HEMOGLOBIN A1C 8.3(H) <5.7 % [facility] Comment: For someone without known diabetes, a hemoglobin A1c value of 6.5% or greater indicates that they may have diabetes and this should be confirmed with a follow-up test. For someone with known diabetes, a value <7% indicates that their diabetes is well controlled and a value greater than or equal to 7% indicates suboptimal control. A1c targets should be individualized based on duration of diabetes, age, comorbid conditions, and other considerations. Currently, no consensus exists regarding use of hemoglobin A1c for diagnosis of diabetes for children. ESTIMATED AVERAGE GLUCOSE (MG/DL) 192 mg/dL [facility] ESTIMATED AVERAGE GLUCOSE (MMOL/L) 10.6 mmol/L [facility] Comment: FASTING:YES FASTING: YES Test Performed at: [facility] [address] [address] Black Fitzpatrick MD Blood 03/05/2025 1:21 PM CDT 03/05/2025 1:21 PM CDT November PUBLIC POLICY ANALYST CHEMISTRY ORDERABLES Final Resul t [facility] [phone] [facility] [address] [phone] * (ABNORMAL) COMPREHENSIVE METABOLIC PANEL (03/05/2025 1:21 PM CDT) GLUCOSE 234(H) 65 - 99 mg/dL [facility] Comment: Fasting reference interval For someone without known diabetes, a glucose value >125 mg/dL indicates that they may have diabetes and this should be confirmed with a follow-up test. BUN 11 7 - 25 mg/dL [facility] CREATININE 0.59(L) 0.70 - 1.28 mg/dL [facility] GFR 101 > OR = 60 mL/min/1.7 3m2 [facility] BUN/CREAT RATIO 19 6 - 22 (calc) [facility] SODIUM 141 135 - 146 mmol/L [facility] POTASSIUM 4.0 3.5 - 5.3 mmol/L [facility] CHLORIDE 103 98 - 110 mmol/L [facility] CO2 30 20 - 32 mmol/L [facility] CALCIUM 8.9 8.6 - 10.3 mg/dL [facility] TOTAL PROTEIN 6.0(L) 6.1 - 8.1 g/dL [facility] ALBUMIN 3.8 3.6 - 5.1 g/dL [facility] GLOBULIN 2.2 1.9 - 3.7 g/dL (calc) [facility] ALBUMIN/GLOBULIN RATIO 1.7 1.0 - 2.5 (calc) [facility] BILIRUBIN TOTAL 0.5 0.2 - 1.2 mg/dL [facility] ALKALINE PHOSPHATASE 51 35 - 144 U/L [facility] AST 14 10 - 35 U/L [facility] ALT 18 9 - 46 U/L [facility] Comment: FASTING:YES FASTING: YES Test Performed at: [facility] [address] [address] Black Fitzpatrick MD Blood 03/05/2025 1:21 PM CDT 03/05/2025 1:21 PM CDT November [facility] CHEMISTRY ORDERABLES Final Resul t Performing Organization Address [facility] Co de Phone Number [facility] [phone] [facility] [address] [address] * (ABNORMAL) LIPID PANEL (04/28/2024 10:32 AM CDT) CHOLESTEROL 151 <200 mg/dL [facility] HDL 50 > OR = 40 mg/dL [facility] TRIGLYCERIDE 216(H) <150 mg/dL [facility] Comment: If a non-fasting specimen was collected, consider repeat triglyceride testing on a fasting specimen if clinically indicated. Joan et al. J. of Clin. Lipidol. 2015;9:129-169. LDL CALCULATED 70 mg/dL (calc) [facility] Comment: Reference range: <100 Desirable range <100 mg/dL for primary prevention; <70 mg/dL for patients with CHD or diabetic patients with > or = 2 CHD risk factors. LDL-C is now calculated using the Lc-Castellano calculation, which is a validated novel method providing better accuracy than the Friedewald equation in the estimation of LDL-C. Lc SS et al. JONATHAN. 2013;310(19): 7102-2311 (http://education.INPA Systems/faq/SBI540) CHOL/HDL RATIO 3.0 <5.0 (calc) [facility] NON-HDL CHOLESTEROL 101 <130 mg/dL (calc) [facility] Comment: For patients with diabetes plus 1 major ASCVD risk factor, treating to a non-HDL-C goal of <100 mg/dL (LDL-C of <70 mg/dL) is considered a therapeutic option. Test Performed at: [facility] [address] [address] Black Fitzpatrick MD Blood 04/28/2024 10:3 2 AM CDT 04/29/2024 6:03 AM CDT [facility] Final Resul t Performing Organization Address [facility]/ZIP Co de Phone Number [facility] [phone] [facility] [address] [place] [address] * (ABNORMAL) MICROALBUMIN/CREATININE RATIO, RANDOM UR (10/09/2023 11:44 AM TYRE FINISHER AND EXAMINER) Creatinine, Urine 67 20 - 320 mg/dL [facility] MICROALBUMIN, URINE 2.8 See Note: mg/dL [email or web address] Comment: Reference Range: Reference Range Not established MICROALBUMIN/CREAT RATIO, UR 42(H) <30 mcg/mg creat [facility] Comment: The ADA defines abnormalities in albumin excretion as follows: Albuminuria Category Result (mcg/mg creatinine) Normal to Mildly increased <30 Moderately increased 30-299 Severely increased > OR = 300 The ADA recommends that at least two of three specimens collected within a 3-6 month period be abnormal before considering a patient to be within a diagnostic category. FASTING:YES FASTING: YES Test Performed at: [facility] [address] Black iFtzpatrick MD Urine URINE SPECIMEN OBTAINED BY CLEAN CATCH PROCEDURE / Unknown 10/09/2023 11:44 AM TYRE FINISHER AND EXAMINER 10/09/2023 11:44 AM TYRE FINISHER AND EXAMINER Jose L Horn MD URINE ORDERABLES Final Result Performing Organization Address City/State/[facility] Co de Phone Number [facility] [phone] [facility] [address] * US ABDOMEN COMPLETE (03/22/2022 11:05 AM CDT) Anatomical Region Laterality Modality Abdomen Ultrasound 03/22/2022 11:0 5 AM CDT Impressions 03/23/2022 7:37 AM CDT IMPRESSION: 1. Probable diffuse hepatic steatosis. 2. Hepatomegaly. 3. Cholelithiasis. 4. Mild diffuse wall thickening of the gallbladder is a nonspecific finding. Possible causes include cholecystitis, congestive heart failure, hepatitis, hypoproteinemia, or a nearby inflammatory process. 5. Probable mild adenomyomatosis of the gallbladder. 6. Mild right hydronephrosis. Narrative 03/23/2022 7:37 AM CDT EXAM: US ABDOMEN COMPLETE, DIAGNOSIS/REASON FOR EXAM: Low back pain, unspecified. DATE AND TIME OF EXAM: 03/22/2022 11:05 AM. COMPARISON: None. TECHNIQUE: Multiplanar real-time ultrasonography of the abdomen using rodríguez-scale imaging, supplemented by color and spectral Doppler as needed. FINDINGS: * Liver: The liver is enlarged and normal contour. Its parenchyma is diffusely hyperechoic. No hepatic masses are identified. * Gallbladder: The gallbladder measures 3.2 x 3.4 x 6.6 cm. Near the fundus of the gallbladder, there are small echogenic structures with comet tail artifact. A round echogenic gallstone within the lumen of the bladder demonstrates posterior shadowing and measures 0.9 cm in diameter. The wall the gallbladder is mildly thickened. There is no pericholecystic fluid. * Biliary: No intrahepatic or extrahepatic biliary dilatation. The common bile duct measures 6 mm in diameter. * Spleen: The spleen is normal in size, contour, and echotexture and without focal lesions. The maximum diameter of the spleen measures 11.3 cm. * Pancreas: The partially visualized head and body of the pancreas are unremarkable. * Right kidney: The right kidney measures 11.7 cm in length. Its parenchyma is normal in echotexture. No right renal masses or renal calculi are identified. There is mild right hydronephrosis. * Left kidney: The left kidney measures 13.4 cm in length. Its parenchyma is normal in echotexture. No left renal masses or renal calculi are identified. There is no left hydronephrosis. * Peritoneum: No ascites. * Imaged Aorta/IVC: The aorta and inferior vena cava are not well visualized due to overlying bowel gas. Procedure Note Silverio Hughes MD - 03/23/2022 EXAM: US ABDOMEN COMPLETE, DIAGNOSIS/REASON FOR EXAM: Low back pain, unspecified. DATE AND TIME OF EXAM: 03/22/2022 11:05 AM. COMPARISON: None. TECHNIQUE: Multiplanar real-time ultrasonography of the abdomen using rodríguez-scale imaging, supplemented by color and spectral Doppler as needed. FINDINGS: * Liver: The liver is enlarged and normal contour. Its parenchyma is diffusely hyperechoic. No hepatic masses are identified. * Gallbladder: The gallbladder measures 3.2 x 3.4 x 6.6 cm. Near the fundus of the gallbladder, there are small echogenic structures with comet tail artifact. A round echogenic gallstone within the lumen of the bladder demonstrates posterior shadowing and measures 0.9 cm in diameter. The wall the gallbladder is mildly thickened. There is no pericholecystic fluid. * Biliary: No intrahepatic or extrahepatic biliary dilatation. The common bile duct measures 6 mm in diameter. * Spleen: The spleen is normal in size, contour, and echotexture and without focal lesions. The maximum diameter of the spleen measures 11.3 cm. * Pancreas: The partially visualized head and body of the pancreas are unremarkable. * Right kidney: The right kidney measures 11.7 cm in length. Its parenchyma is normal in echotexture. No right renal masses or renal calculi are identified. There is mild right hydronephrosis. * Left kidney: The left kidney measures 13.4 cm in length. Its parenchyma is normal in echotexture. No left renal masses or renal calculi are identified. There is no left hydronephrosis. * Peritoneum: No ascites. * Imaged Aorta/IVC: The aorta and inferior vena cava are not well visualized due to overlying bowel gas. IMPRESSION: 1. Probable diffuse hepatic steatosis. 2. Hepatomegaly. 3. Cholelithiasis. 4. Mild diffuse wall thickening of the gallbladder is a nonspecific finding. Possible causes include cholecystitis, congestive heart failure, hepatitis, hypoproteinemia, or a nearby inflammatory process. 5. Probable mild adenomyomatosis of the gallbladder. 6. Mild right hydronephrosis. Ruben Hudson DO US ORDERABLES Final Resu lt * DIABETES EYE EXAM (09/10/2020 12:00 AM TYRE FINISHER AND EXAMINER) [facility] Scanning HEALTH MAINTENANCE Final Result from Last 3 Months or Most Recently Relevant to Health Maintenance Insurance MEDICAID [place] [facility] DUAL COMPLETE HMO DSNP [facility] [id number] * Guarantor: IVÁN HERNADEZ Account Type Relation to Patient Date of Phone Billing Address Personal/Family [address] [place] [address] RX INFOCROSSING Medicaid RX A[employer] Medicare Part D RX [employer] RX Member Subscriber Plan / Payer (Ef fective 2022-Present) Name:Iván Hernadez Relation to Subscriber:Self Name:Iván Hernadez Payer ID:Not on file Group ID:[id number] Type:RX Medicare Part D Address: [place] Care Teams Railroad Inspector Relationship Specialty Start Date End Date Venita Harris DO [address] [facility] [place] [phone] PCP - General Family Practice 01/02/24
--- OUTSIDE RECORDS SUMMARY | 2025-07-22 20:35 | XMS_ITS | Encounter Summary ---
Author Organization [facility] Address [address] [place] [address] Care Team Providers Care Tiler'S Assistant Name Role Phone Venita Harris DO Primary Care Provider [phone] Reason for Visit * Reason Comments Med Change Request Encounter Details Date Type Department Care Team (Late Contact Info) Description 01/29/[address] [facility] Urology- [address] Entrance B, 3[address] [place] [address] Hiral Scherer, [facility] [address] [place] [address] Social History Tobacco Use Types Packs/Day Years Used Date Smoking Tobacco: Every Day Cigarettes Passive Smoke Exposure: Current Smokeless Tobacco: Never Alcohol Use Standard Drinks/Week Comments No 0 (1 standard drink = 0.6 oz pur e alcohol) Sex and Gender Information Value Date Recorded Sex Assigned at Not on file Legal Sex Male 3:06 PM HEALTH CARE SANITARY TECHNICIAN Gender Identity Not on file Sexual Orientation Not on file documented as of this encounter Plan of Treatment Upcoming Encounters Date Type Department Care Team (Late Contact Info) Description 2025 3:40 PM HEALTH CARE SANITARY TECHNICIAN Office Visit [facility] Family Medicine [place] [address] [place] [address] [facility] [address] [place] [address] 08/20/2025 11:00 AM HEALTH CARE SANITARY TECHNICIAN Clinical Support [facility] Urology [address] [phone] 02/04/2026 11:30 AM CDT Office Visit [facility] Urology [address] [place] [phone] Hiral Scherer, [address] [phone] documented as of this encounter Visit Diagnoses Not on filedocumented in this encounter Additional Health Concerns Assessment Noted Time PHQ-9 Depression Total Score: 1 09/23/19 25 3:46 PM HEALTH CARE SANITARY TECHNICIAN documented as of this encounter Care Teams Tiler'S Assistant Relationship Specialty Start Date End Date Venita Harris DO [address] [place] [address] PCP - General Family Practice 01/02/24 documented as of this encounter
== END 2025-07-22 18:40 | disposition home or self-care (01) ==
PROVIDERS: Emergency Provider Emergency Medicine
DX: N30.00 Acute cystitis without hematuria (principal); Z79.82 Long term (current) use of aspirin; F17.210 Nicotine dependence, cigarettes, uncomplicated; E11.9 Type 2 diabetes mellitus without complications; Z79.4 Long term (current) use of insulin
CPT/HCPCS: 70450; 71045; 80053; 81001; 85025; 87086; 93005; 96374; 96375; 99285; J0360; J0696